=== PATIENT | female | born 1955 ===

== ENCOUNTER 2018-10-15 12:33 | Day surgery (SDC) | payer MEDICAID, MEDICARE ==
--- NOTE | 2018-10-15 07:13 | History and Physical - [place] ---
CHIEF COMPLAINT/HISTORY OF CHIEF COMPLAINT: This patient with a history of post lumbar laminectomy syndrome has a spinal infusion system infusing Hydromorphone. Over the last number of refills, battery depletion was identified. She is here on an outpatient basis for battery replacement without parameter change. PAST MEDICAL HISTORY: Hypertension. PAST SURGICAL HISTORY: Gallbladder surgery, hysterectomy, lumbar spina surgery , and pump placement. MEDICATIONS ON ADMISSION: List to be provided. ALLERGIES: None. FAMILY/PSYCHOSOCIAL HISTORY: Social history - Caffeine. Family history - Diabetes, coronary artery disease, and hypertension. SYSTEMS REVIEW: The patient seems appropriate in no acute distress. The remainder of the systems review is noncontributory. PHYSICAL EXAMINATION: Height is 5'2", weight is 190. No vital signs. HEENT: Within normal limits. LUNGS: Clear. HEART: Rapid and regular. ABDOMEN: Nontender. MUSCULOSKELETAL: Examination of the musculoskeletal system shows the pump in the left posterior gluteal margin. The incisional site is intact. Primary pain pattern post laminectomy extending into both lower extremities. All incisions are intact. NEUROLOGIC: Cranial nerves are intact. IMPRESSION: 1. POST LUMBAR LAMINECTOMY SYNDROME, ICD-10 CODE M96.1 WITH RADICULOPATHY, ICD- 10 CODE M54.16 AND M54.17. 2. IMPLANTED SPINAL INFUSION SYSTEM UTILIZING HYDROMORPHONE, BATTERY DEPLETION. PLAN: The patient is here on an outpatient basis for battery change. The procedure will be considered outpatient, an overnight stay will not be necessary. JOB NUMBER: [id number] [facility]
[~2018-10-15 12:33] MED LIST: ACETAMINOPHEN 1,000 MG/100 ML BTL IV ONE; CEFAZOLIN 2 Gram 2 GM/50 ML BAG IVPB ONE; FAMOTIDINE 20MG TABLET PO ONE; HYDROMORPHONE HCL 0.6 GM in 0.9 % SODIUM CHLORIDE 10ML VIA 20 ML IV ONE; HYDROMORPHONE PF 2MG/ML AMP 0.008 MG in 0.9 % SODIUM CHLORIDE 10ML VIA 0.996 ML IV ONE; MECLIZINE 25 MG TABLET PO ONE; METOCLOPRAMIDE 10 MG TABLET PO ONE
[2018-10-15] MEDS ORDERED: MIDAZOLAM HCL 2MG/2ML VIAL IV ONE (12:34)
[2018-10-15] MEDS ORDERED: 0.9 % SODIUM CHLORIDE 10 ML VIAL IVP ONE (12:34)
[2018-10-15] MEDS ORDERED: KETAMINE HCL 100MG/1ML VIAL INJ ONE (12:34)
[2018-10-15] MEDS ORDERED: FENTANYL PF 100MCG/2ML VIAL IV ONE (12:34)
[2018-10-15] MEDS ORDERED: CEFAZOLIN 1G VIAL IM ONE (12:34)
[2018-10-15] MEDS ORDERED: PROPOFOL 10 MG/ML VIAL IV ONE (12:34)
[2018-10-15] MEDS ORDERED: LIDOCAINE 2% MDV (20MG/ML) 20ML VIAL IV ONE (12:34)
[2018-10-15] MEDS ORDERED: BUPIVACAINE 0.5% W/EPI MPF 30 ML VIAL SQ ONE ×2 (15:26)
[2018-10-15] MEDS ORDERED: LIDOCAINE 1% W/EPI 1:200,000 MPF 30ML SQ ONE ×2 (15:27)
--- NOTE | 2018-10-17 05:58 | Operative Note ---
DATE: 10/15/2018. PRIMARY CARE PHYSICIAN: Mary Miller M.D. PREOPERATIVE DIAGNOSES: 1. INTRACTABLE POSTLUMBAR LAMINECTOMY SYNDROME, ICD-10 CODE M96.1. 2. LUMBAR RADICULOPATHY, ICD-10 CODE M54.16 AND M54.17. 3. PROGRAMMABLE SPINAL INFUSION SYSTEM WITH HYDROMORPHONE WITH BATTERY DEPLETION. POSTOPERATIVE DIAGNOSES: 1. INTRACTABLE POSTLUMBAR LAMINECTOMY SYNDROME, ICD-10 CODE M96.1. 2. LUMBAR RADICULOPATHY, ICD-10 CODE M54.16 AND M54.17. 3. PROGRAMMABLE SPINAL INFUSION SYSTEM WITH HYDROMORPHONE WITH BATTERY DEPLETION. PROCEDURES: 1. Fluoroscopically guided incision, subcutaneous dissection, and replacement of programmable pump at the left posterior gluteal margin. 2. Diagnostic myelography with radiologic supervision and interpretation. 3. Programming of pump to deliver by continuous infusion hydromorphone at 20 mg per mL concentration at 4.0 mg per day. SURGEON: Artis Jain D.O. ANESTHESIA: Local sedation. ANESTHESIA PROVIDER: Lachelle Petersen CRNA. INDICATIONS: This patient presents with a history of intractable postlumbar laminectomy radiculopathy. A spinal infusion system is in place infusing hydromorphone at 4.0 mg a day. Over the last couple of refills and programmings , it was noted that her battery was depleted. She is here for pump battery change without parameter changes. DESCRIPTION OF PROCEDURE: Intravenous line, vital sign monitoring, and intravenous sedation. Prepped and draped with sterile technique with the patient positioned prone. Sterile prep at the left posterior gluteal margin pump pouch site. Sterile prep and sterile technique. Under imaging for guidance, the incision for the pump was infiltrated with local. An incision was made and subcutaneous dissection was conducted to the pump pouch. The Dacron sleeve were opened, and the pump was exteriorized. A curved 24-gauge Olvera needle was inserted into the access port, and 1.0 mL of catheter contents was aspirated, clearing the catheter of opioid and cerebrospinal fluid mixture. The indwelling catheter was then from the pump. A new 20 mL programmable prefilled with hydromorphone 30 mg per mL was placed onto the field. The new pump was then interfaced with the indwelling spinal catheter. Antibiotic irrigation and Bovie for hemostasis. The pump was placed into the pouch. A 24-gauge Olvera needle was inserted into the access port, and contrast was injected. The resulting myelogram with radiologic supervision and interpretation showed contrast moving through the pump components and moving through the pump catheter connection. No kinks, bends, or leaks. The tip of the catheter was identified at T9. Appropriate flow characteristics were noted. Functionality was then confirmed. The pump was programmed to deliver by continuous infusion hydromorphone at 4.0 mg a day. With the pump in the pouch, the incision was closed using Stratafix suture with #2-0 for the fascia and #3-0 for the skin. Dermabond closure was used to approximate the edges of the wound. She was transported to the recovery room stable with no side effects from the procedure or the sedation. She was stable. DISCHARGE INSTRUCTIONS: 1. The site is to remain clean and dry. No showering or bathing in any way that would disrupt dressings. Although the Dermabond will allow showering, she may not sit in water. 2. Her standard medications are to be resumed including continuing the antibiotic Levaquin 500 mg once a day for 14 days. 3. The office is to contact the patient in 12 to 24 hours to set up a time in the next 7 to 10 days for us to evaluate the incisions. Through this period of time, she is to keep her activities low and controlled and limit bend, lift, push, and pull. 4. Spinal opioid side effects including respiratory depression, nausea, vomiting, constipation, urinary retention, lightheadedness, and rash have all been discussed and reviewed. 4. All other instructions were answered, and she was then discharged. JOB NUMBER: [id number] cc: Mary Miller M.D. MTDD
== END 2018-10-15 16:35 | disposition home or self-care (01) ==
LOC: SUR 12:33
PROVIDERS: ATTEND Pain Medicine Interventional Pain Medicine
DX: M96.1 Postlaminectomy syndrome, not elsewhere classified (principal); M54.16 Radiculopathy, lumbar region; M54.17 Radiculopathy, lumbosacral region; I10 Essential (primary) hypertension; E78.00 Pure hypercholesterolemia, unspecified; K21.9 Gastro-esophageal reflux disease without esophagitis; Z79.01 Long term (current) use of anticoagulants; E11.9 Type 2 diabetes mellitus without complications; E66.9 Obesity, unspecified
CPT/HCPCS: 62368; 85002; C1776; J0690; J1170; J3490